=== PATIENT | male | born 1980 | race Caucasian/White ===

== ENCOUNTER 2017-06-15 16:33 | Emergency (ER) | payer OTHER ==
[~2017-06-15] VITALS: Ht 190.5 cm; Wt 142.4 kg
[~2017-06-15 16:33] MED LIST: KEFLEX500 M1 PO; VICO10300 PO
[2017-06-15 17:18] LABS: BASO # 0.1 10*3/uL (0.0-0.1); BASO % 0.8 % (0.0-1.0); EOS # 0.2 10*3/uL (0.0-0.4); EOS % 2.4 % (1.0-4.0); HEMATOCRIT 43.4 % (42.0-52.0); HEMOGLOBIN 14.4 g/dl (14.0-18.0); LYMPH # 3.8 10*3/uL (1.3-4.4); MEAN CELL VOLUME 85.1 fl (80.0-94.0); MEAN CORPUSCULAR HGB 28.2 pg (27.0-31.0); MEAN CORPUSCULAR HGB CONC 33.2 g/dl (33.0-37.0); MEAN PLATELET VOLUME 9.9 fl (9.6-12.3); MONO # 0.7 10*3/uL (0.1-1.0); MONO % 7.5 % (3.0-9.0); NEUT # 4.8 10*3/uL (2.3-7.9); NEUT % 49.4 % (47.0-73.0); PLATELET COUNT AUTOMATED 298 10*3/uL (130-400); RED CELL DISTRI WIDTH 13.8 % (0-14.5); WHITE BLOOD COUNT 9.8 10*3/uL (4.8-10.8)
[2017-06-15 17:26] LABS: ACT PARTIAL THROMBO TIME 24.8 SECONDS (20.8-31.5); INTERNATIONAL NORM RATIO 0.9 (2.0-3.5)
[2017-06-15 17:27] LABS: ALBUMIN 3.4 gm/dl (3.1-4.5); ALKALINE PHOSPHATASE 188 U/L (45-117); BUN 9 mg/dl (7-24); CHLORIDE 106 mmol/L (98-107); CREATININE 0.95 mg/dL (0.70-1.30); LIPASE 138 U/L (73-393); POTASSIUM 3.7 mmol/L (3.5-5.1); SGOT/AST 76 IU/L (3-35); SGPT/ALT 156 U/L (12-78); SODIUM 139 mmol/L (136-145); TOTAL PROTEIN 8.1 gm/dL (6.4-8.2)
== END 2017-06-15 20:53 | disposition home or self-care (01) ==
LOC: ED 16:33
PROVIDERS: Nurse Practitioner Family
DX: R10.32 Left lower quadrant pain (principal); R03.0 Elevated blood-pressure reading, without diagnosis of hypertension; Z98.890 Other specified postprocedural states; Z93.3 Colostomy status

== ENCOUNTER → 2017-11-08 | Outpatient (CLI) | payer OTHER | END | disposition home or self-care (01) | LOC: RAD 15:41 | DX: M47.892 Other spondylosis, cervical region (principal); M17.11 Unilateral primary osteoarthritis, right knee; M25.562 Pain in left knee; V89.0XXD Person injured in unspecified motor-vehicle accident, nontraffic, subsequent encounter; X58.XXXD Exposure to other specified factors, subsequent encounter ==

== ENCOUNTER 2020-08-29 13:27 | Emergency (ER) | payer MEDICARE, MEDICAID ==
[~2020-08-29] VITALS: Wt 147.4 kg
== END 2020-08-29 16:38 | disposition home or self-care (01) ==
LOC: ED 13:27
DX: S86.911A Strain of unspecified muscle(s) and tendon(s) at lower leg level, right leg, initial encounter (principal); W18.39XA Other fall on same level, initial encounter; Y93.89 Activity, other specified; Y92.89 Other specified places as the place of occurrence of the external cause; Y99.8 Other external cause status

== ENCOUNTER → 2020-12-07 | Outpatient (CLI) | payer MEDICARE, MEDICAID | END | disposition home or self-care (01) | LOC: RAD 12:34 | PROVIDERS: ATTEND Family Medicine | DX: M48.02 Spinal stenosis, cervical region (principal); M40.202 Unspecified kyphosis, cervical region; M54.5 Low back pain; M25.511 Pain in right shoulder ==